=== PATIENT | female | born 1940 | race Caucasian/White ===

== ENCOUNTER 2024-07-22 11:35 | Inpatient (IN) ==
[2024-07-22 12:44] LABS: Basophils # (Auto) 0.04 K/mcL (0.00-0.30); Basophils % (Auto) 0.5 % (0.0-2.0); Eosinophils # (Auto) 0.16 K/mcL (0.00-0.70); Eosinophils % (Auto) 1.9 % (0.0-7.0); Hematocrit 37.8 % (34.1-44.9); Hemoglobin 12.9 g/dL (11.2-15.7); Lymphocytes # (Auto) 2.13 K/mcL (1.50-4.80); Lymphocytes % (Auto) 25.9 % (15.5-49.0); Mean Cell Volume 89.8 fL (80.0-100.0); Mean Corpuscular HGB Conc 34.1 g/dL (31.0-36.0); Mean Platelet Volume 8.3 fL (8.8-12.5); Monocytes # (Auto) 0.56 K/mcL (0.10-0.90); Monocytes % (Auto) 6.8 % (1.0-12.0); Platelet Count 306 K/mcL (140-440); RBC 4.21 M/mcL (3.59-5.38); Red Cell Distribution Width 11.3 % (11.5-14.5); WBC 8.2 K/mcL (4.5-11.0)
[2024-07-22 12:52] LABS: Alcohol, Blood < 10.1 mg/dL; Alcohol,Blood < 0.010 gm/dL (<0.010)
[2024-07-22 12:56] LABS: ALT/SGPT 22 U/L (<40); AST/SGOT 28 U/L (<32); Albumin 4.1 gm/dL (3.2-5.2); Albumin/Globulin Ratio 1.5 (1.0-2.3); Alkaline Phosphatase 60 U/L (39-117); Bilirubin,Total 0.3 mg/dL (0.1-1.0); Blood Urea Nitrogen 11 mg/dL (8-23); Carbon Dioxide 23 mmol/L (22-30); Chloride 90 mmol/L (96-108); Globulin 2.8 gm/dL (2.2-3.7); Glomerular Filtration Rate 67; Glucose 96 mg/dL (70-105); Potassium 4.4 mmol/L (3.3-5.1); Sodium 126 mmol/L (133-145)
[2024-07-22 13:16] LABS: Thyroid Stimulating Hormone 4.03 uIU/mL (0.27-5.01)
[2024-07-22 13:20] LABS: Free T4 (Free Thyroxine) 1.77 ng/dL (0.93-1.70)
[2024-07-22 14:04] LABS: Appearance,Urine CLEAR (Clear); Bilirubin,Urine Negative (Negative); Color,Urine YELLOW; Glucose,Urine (UA) Negative (Negative); Ketones,Urine Negative (Negative); Leukocyte Esterase,Urine 25 /uL (Negative); Mucus,Urine FEW /hpf; Nitrate,Urine Negative (Negative); Protein,Urine Negative (Negative); Specific Gravity,Urine 1.008 (1.000-1.035); Urine Blood Negative (Negative); Urine RBC 1 /hpf (0-3); Urine Squamous Epithelial Cell < 1 /hpf (0-4); Urine WBC 2 /hpf (0-4); Urobilinogen,Urine Negative
[2024-07-22 14:22] LABS: Amphetamine Screen,Urine None detected; Barbiturate Screen,Urine None detected; Benzodiazepines Screen,Urine None detected; Cannabinoid Screen,Urine None detected; Cocaine Screen,Urine None detected; Fentanyl, Urine Screen None Detected; Opiate Screen,Urine None detected; Oxycodone, Urine Screen None detected; Phencyclidine Screen,Urine None detected
[2024-07-22 16:51] LABS: Blood Urea Nitrogen 11 mg/dL (8-23); Calcium 9.8 mg/dL (8.6-10.4); Carbon Dioxide 23 mmol/L (22-30); Chloride 91 mmol/L (96-108); Glomerular Filtration Rate 79; Glucose 102 mg/dL (70-105); Potassium 4.5 mmol/L (3.3-5.1); Sodium 127 mmol/L (133-145)
[2024-07-22 16:57] LABS: Osmolality,Urine 332 mOSM/kg (80-1000)
[2024-07-22 17:03] LABS: Sodium, Urine Random 84 mmol/L
[2024-07-22] MEDS ORDERED: ONDANSETRON 4 MG/2 ML VIAL IV PRN (17:16)
[2024-07-22] MEDS ORDERED: ACETAMINOPHEN 325 MG TABLET PO PRN (17:21)
[2024-07-22] MEDS ORDERED: IBUPROFEN 600 MG TABLET PO PRN (17:21)
[2024-07-22] MEDS ORDERED: SENNOSIDES 1 TABLET PO PRN (17:22)
[2024-07-22] MEDS: HEPARIN 5,000 UNIT/ML VIAL SQ SCH (20:42)
[2024-07-22] MEDS: MELATONIN 3 MG TABLET PO SCH (20:42)
[2024-07-22] MEDS: SODIUM CHLORIDE 1 GM TABLET PO SCH (20:42)
[2024-07-22] MEDS: 0.9 % SODIUM CHLORIDE 10 ML SYRINGE IV SCH (20:43)
[2024-07-22 22:23] LABS: Sodium 126 mmol/L (133-145)
[2024-07-23 06:05] LABS: Basophils # (Auto) 0.04 K/mcL (0.00-0.30); Basophils % (Auto) 0.6 % (0.0-2.0); Eosinophils # (Auto) 0.14 K/mcL (0.00-0.70); Eosinophils % (Auto) 2.2 % (0.0-7.0); Hematocrit 35.7 % (34.1-44.9); Hemoglobin 12.3 g/dL (11.2-15.7); Lymphocytes # (Auto) 1.79 K/mcL (1.50-4.80); Lymphocytes % (Auto) 28.7 % (15.5-49.0); Mean Cell Volume 89.7 fL (80.0-100.0); Mean Corpuscular HGB Conc 34.5 g/dL (31.0-36.0); Mean Platelet Volume 8.4 fL (8.8-12.5); Neutrophils % (Auto) 59.9 % (38.0-78.0); Platelet Count 309 K/mcL (140-440); RBC 3.98 M/mcL (3.59-5.38); Red Cell Distribution Width 11.4 % (11.5-14.5); WBC 6.2 K/mcL (4.5-11.0)
[2024-07-23 06:27] LABS: ALT/SGPT 21 U/L (<40); AST/SGOT 27 U/L (<32); Albumin 4.1 gm/dL (3.2-5.2); Albumin/Globulin Ratio 1.6 (1.0-2.3); Alkaline Phosphatase 58 U/L (39-117); Bilirubin,Total 0.5 mg/dL (0.1-1.0); Blood Urea Nitrogen 12 mg/dL (8-23); Calcium 10.1 mg/dL (8.6-10.4); Carbon Dioxide 21 mmol/L (22-30); Chloride 92 mmol/L (96-108); Globulin 2.5 gm/dL (2.2-3.7); Glomerular Filtration Rate 83; Glucose 96 mg/dL (70-105); Potassium 4.4 mmol/L (3.3-5.1); Sodium 124 mmol/L (133-145)
[2024-07-23] MEDS ORDERED: LORazepam 0.5 MG TABLET PO PRN (08:50)
[2024-07-23] MEDS: SODIUM CHLORIDE 1 GM TABLET PO ONE (08:56)
[2024-07-23] MEDS: ATORVASTATIN 20 MG TABLET PO SCH (08:57)
[2024-07-23] MEDS: METOPROLOL SUCCINATE 25 MG TAB.XL.24H PO SCH (08:57)
[2024-07-23] MEDS: amLODIPine 5 MG TABLET PO SCH (08:57)
[2024-07-23] MEDS: LOSARTAN 25 MG TABLET PO SCH (08:57)
[2024-07-23] MEDS: LEVOTHYROXINE 88 MCG TABLET PO SCH (08:57)
[2024-07-23] MEDS: 0.9 % SODIUM CHLORIDE 500 ML IV ONE ×2 (09:08→15:24)
[2024-07-23 13:29] LABS: Sodium 125 mmol/L (133-145)
[2024-07-23] MEDS: SODIUM CHLORIDE 1 GM TABLET PO SCH (15:24)
[2024-07-23 21:00] LABS: Sodium 127 mmol/L (133-145)
[2024-07-23] MEDS: LORazepam 2 MG/ML VIAL IV ONE (22:09)
[2024-07-24 06:39] LABS: Basophils # (Auto) 0.04 K/mcL (0.00-0.30); Basophils % (Auto) 0.5 % (0.0-2.0); Eosinophils % (Auto) 1.3 % (0.0-7.0); Hematocrit 35.9 % (34.1-44.9); Hemoglobin 12.5 g/dL (11.2-15.7); Lymphocytes % (Auto) 22.1 % (15.5-49.0); Mean Cell Volume 88.9 fL (80.0-100.0); Mean Corpuscular HGB Conc 34.8 g/dL (31.0-36.0); Mean Platelet Volume 8.9 fL (8.8-12.5); Monocytes # (Auto) 0.58 K/mcL (0.10-0.90); Monocytes % (Auto) 7.5 % (1.0-12.0); Neutrophils % (Auto) 68.2 % (38.0-78.0); Platelet Count 358 K/mcL (140-440); RBC 4.04 M/mcL (3.59-5.38); Red Cell Distribution Width 11.2 % (11.5-14.5); WBC 7.7 K/mcL (4.5-11.0)
[2024-07-24 06:52] LABS: ALT/SGPT 20 U/L (<40); AST/SGOT 27 U/L (<32); Albumin 4.3 gm/dL (3.2-5.2); Albumin/Globulin Ratio 1.6 (1.0-2.3); Alkaline Phosphatase 63 U/L (39-117); Bilirubin,Total 0.4 mg/dL (0.1-1.0); Blood Urea Nitrogen 11 mg/dL (8-23); Calcium 10.1 mg/dL (8.6-10.4); Carbon Dioxide 22 mmol/L (22-30); Chloride 94 mmol/L (96-108); Globulin 2.7 gm/dL (2.2-3.7); Glomerular Filtration Rate 88; Glucose 107 mg/dL (70-105); Potassium 4.4 mmol/L (3.3-5.1); Sodium 129 mmol/L (133-145)
[2024-07-24] MEDS: SODIUM CHLORIDE 1 GM TABLET PO SCH ×2 (09:05→14:02)
[2024-07-24 12:50] LABS: Sodium 129 mmol/L (133-145)
[2024-07-24 22:32] LABS: Sodium 132 mmol/L (133-145)
[2024-07-25 06:41] LABS: Basophils # (Auto) 0.02 K/mcL (0.00-0.30); Basophils % (Auto) 0.3 % (0.0-2.0); Eosinophils # (Auto) 0.08 K/mcL (0.00-0.70); Hematocrit 34.5 % (34.1-44.9); Hemoglobin 11.6 g/dL (11.2-15.7); Mean Corpuscular HGB Conc 33.6 g/dL (31.0-36.0); Mean Platelet Volume 8.7 fL (8.8-12.5); Monocytes # (Auto) 0.78 K/mcL (0.10-0.90); Monocytes % (Auto) 10.1 % (1.0-12.0); Neutrophils % (Auto) 66.2 % (38.0-78.0); Platelet Count 301 K/mcL (140-440); RBC 3.75 M/mcL (3.59-5.38); Red Cell Distribution Width 11.6 % (11.5-14.5); WBC 7.7 K/mcL (4.5-11.0)
[2024-07-25 07:02] LABS: ALT/SGPT 19 U/L (<40); AST/SGOT 24 U/L (<32); Albumin/Globulin Ratio 1.7 (1.0-2.3); Alkaline Phosphatase 54 U/L (39-117); Bilirubin,Total 0.3 mg/dL (0.1-1.0); Blood Urea Nitrogen 22 mg/dL (8-23); Calcium 9.9 mg/dL (8.6-10.4); Carbon Dioxide 21 mmol/L (22-30); Chloride 99 mmol/L (96-108); Globulin 2.3 gm/dL (2.2-3.7); Glomerular Filtration Rate 79; Glucose 108 mg/dL (70-105); Potassium 4.2 mmol/L (3.3-5.1); Sodium 134 mmol/L (133-145)
[2024-07-25 11:54] VITALS: TEMP 98.2; O2SAT 98
== END 2024-07-25 13:10 | DRG 640 ==
LOC: ED 11:35 → MEDSUR 19:51
PROVIDERS: ADMIT Student in an Organized Health Care Education/Training Program; ATTEND Student in an Organized Health Care Education/Training Program